=== PATIENT | female | born 1955 | race Two or more races ===

== ENCOUNTER 2024-04-16 00:28 | Emergency (ER) | payer SELFPAY ==
[~2024-04-16] VITALS: Ht 157.5 cm; Wt 70.0 kg
[~2024-04-16 00:28] MED LIST: DEXTROSE 50% WATER 50ML SYRINGE IV ONE
[2024-04-16 02:01] LABS: BASOPHILS % 0.6 % (0.0-2.0); EOSINOPHILS % 10.4 % (0.0-5.0); HEMATOCRIT. 30.8 % (36.0-48.0); HEMOGLOBIN. 10.2 g/dL (12.0-16.0); LYMPHOCYTES % 14.8 % (20.0-50.0); MEAN CORPUSCULAR HEMOGLOBIN 29.9 pg (28.0-32.0); MEAN CORPUSCULAR HGB CONC 33.2 g/dL (31.0-37.0); MEAN PLATELET VOLUME 8.1 fl (7.4-10.4); MONOCYTES % 5.4 % (2.0-8.0); NEUTROPHILS % 68.8 % (40.0-76.0); PLATELET 297 x1000/uL (130-400); RED BLOOD CELL COUNT 3.42 mill/uL (4.2-5.4); RED CELL DISTRIBUTION WIDTH 14.8 % (11.6-14.6); WHITE BLOOD COUNT 9.2 x1000/uL (4.5-11.0)
[2024-04-16 02:06] LABS: CHLORIDE 98 mEq/L (98-107); POTASSIUM 4.7 mEq/L (3.5-5.1); SODIUM 127 mEq/L (136-145)
[2024-04-16 02:07] LABS: CALCIUM 10.1 mg/dL (8.7-10.4); CARBON DIOXIDE 24 mEq/L (21-32)
[2024-04-16 02:10] LABS: PROTHROMBIN TIME 11.3 sec (9.6-11.0)
[2024-04-16 02:12] LABS: GLUCOSE 116 mg/dL (70-105); UREA NITROGEN BLOOD 28 mg/dL (9-23)
[2024-04-16] MEDS: DEXTROSE 50% WATER 50ML SYRINGE IV ONE (02:14)
[2024-04-16 02:41] VITALS: BP 130/53; PULSE 75; RESP 19; O2SAT 98
[2024-04-16] MEDS ORDERED: IOHEXOL-350 100 ML BOTTLE ONE (03:21)
[2024-04-16 03:30] LABS: ETHANOL BLOOD < 10 mg/dL (<10)
== END 2024-04-16 02:48 | disposition left against medical advice (07) ==
LOC: ER 00:28
DX: I63.9 Cerebral infarction, unspecified (principal); E11.9 Type 2 diabetes mellitus without complications; I10 Essential (primary) hypertension
CPT/HCPCS: 80048; 80320; 82962; 85025; 85610; 36415; 71045; 70496; 70498; 70450; 93005; 99285; Q9967; G0480